=== PATIENT | female | born 1990 | race Caucasian/White ===

== ENCOUNTER 2019-03-26 08:59 | Emergency (ER) | payer OTHER ==
[~2019-03-26] VITALS: Ht 170.2 cm; Wt 108.9 kg
--- OUTSIDE RECORDS SUMMARY | ~2019-03-26 | XMS | Clinical Summary ---
Demographics + + + | Address | [address] | | | [place] [address] | + + + | Home Phone | | + + + | Preferred Language | Unknown | + + + | Marital Status | Unknown | + + + | Taoism Affiliation | Unknown | + + + | Race | Unknown | + + + | Ethnic Group | Unknown | + + + Author + + + | Author | [facility] (Historical as of | | | 01-15-19) | + + + | Organization | [facility] (Historical as of | | | 01-15-19) | + + + | Address | Unknown | + + + | Phone | Unavailable | + + + Support + + +---------+ + | Name | Relationship | Address | Phone | + + +---------+ + | No,Contact | ECON | Unknown | | + + +---------+ + Care Team Providers + +------+ + | Care Order Dispatcher Name | Role | Phone | + +------+ + | Norm Wall | PP | | + +------+ + Allergies Not on File Current Medications Not on file Active Problems Not on file Social History + +-------+ +--------+------+ | Tobacco Use | Types | Packs/Day | Years | Date | | | | | Used | | + +-------+ +--------+------+ | Never Assessed | | | | | + +-------+ +--------+------+ + + + | Sex Assigned at | Date Recorded | | | | + + + | Not on file | | + + + Plan of Treatment + + + + + | Health Maintenance | Due Date | Last Done | Comments | + + + + + | Vaccine: | | | | | Dtap/Tdap/Td (1 - | 8 | | | | Tdap) | | | | + + + + + | Cervical Cancer | | | | | Screening (Pap) | 9 | | | + + + + + | Vaccine: Influenza | | | | | (#1) | 9 | | | + + + + + Results Not on filefrom Last 3 Months Insurance + +--------+ +------+-------+ + | Payer | Benefi | Subscriber | Type | Phone | Address | | | t Plan | ID | | | | | | / | | | | | | | Group | | | | | + +--------+ +------+-------+ + | MEDICAID | [place] | [id number] | | | [address] | | | [place] | | | | [place] | | | [place] | | | | [phone] | | | 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
--- OUTSIDE RECORDS SUMMARY | ~2019-03-26 | XMS | Clinical Summary ---
Demographics + + + | Address | [address] | | | [place] [address] | + + + | Home Phone | | + + + | Preferred Language | Unknown | + + + | Marital Status | Unknown | + + + | Mormon Affiliation | Unknown | + + + | Race | Unknown | + + + | Ethnic Group | Unknown | + + + Author + + + | Author | [facility] [employer] [facility] (Historical as of | | | 01-15-19) | + + + | Organization | [facility] [employer] [facility] (Historical as of | | | 01-15-19) [...] Team Providers + +------+ + | Care Telephone Engineer Name | Role | Phone | + [...] +------+-------+ + | MEDICAID | [place] | [id number] | | | [address] | | | [place] | | | | [place] | | | [place] | | | | [phone] | | | 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
[~2019-03-26 08:59] MED LIST: ANAPROX DS550 MG PO; ATIVAN1 MG PO; BACLOFEN10 MG PO; BACTRIM DS TAB1 EACH PO; CEPHALEXIN500 MG PO; CIPROFLOXACIN500 MG PO; CITALOPRAM HBR20 MG PO; CYCLOBENZAPRINE10 MG PO; DAYPRO600 MG PO; DILTIAZEM HCL120 MG PO; DOXYCYCLINE HY100 MG PO; DYCLONINE HCL5 GM MISC; FISH OIL500 MG PO; FLEXERIL10 MG PO; HYDROCODON-ACE1 EA10 PO; MONO-LINYAH1 EACH PO; MOTRIN IB200 MG PO; MULTI-DAY VITA1 EACH PO; NAPROXEN500 MG PO; NEURONTIN400 MG PO; NORCO 10-325 T1 EACH PO; NORCO 5-325 TA1 EACH PO; OMEPRAZOLE20 MG PO; OXYCODON-ACETA1 EAC2 PO; PAROXETINE HCL20 MG PO; PENICILLIN V P500 MG PO; PROVENTIL HFA6.7 GM INH; ROBAXIN-750750 MG PO; SEROQUEL50 MG PO; ULTRAM50 MG PO; VICODIN 5-3001 EACH PO; ZITHROMAX250 MG PO
--- OUTSIDE RECORDS SUMMARY | 2019-03-26 09:02 | XMS ---
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 Roberto has no Care Guidelines for this patient. [place] VISIT COUNT (12 MO.) 1 TRACY Daniel TOTAL 1 NOTE: Visits indicate total known visits. ED/C VISIT TRACKING (12 MO.) 03/26/2019 09:00 [facility] TYPE: Emergency COMPLAINT: - SUICIDAL, LACS INPATIENT VISIT TRACKING (12 MO.) No inpatient visits to display in this time frame [email or web address]
[2019-03-26] MEDS ORDERED: DIVALPROEX SOD250 MG PO (09:03)
[2019-03-26] MEDS ORDERED: OMEPRAZOLE20 MG PO (09:03)
[2019-03-26] MEDS ORDERED: DULOXETINE HCL60 MG PO (09:03)
== END 2019-03-26 10:37 | disposition home or self-care (01) ==
LOC: ED 08:59
DX: S51.812A Laceration without foreign body of left forearm, initial encounter (principal); F60.3 Borderline personality disorder; F17.200 Nicotine dependence, unspecified, uncomplicated; Z88.0 Allergy status to penicillin; Z88.1 Allergy status to other antibiotic agents; W25.XXXA Contact with sharp glass, initial encounter
CPT/HCPCS: 99282

== ENCOUNTER 2020-01-27 14:46 | Emergency (ER) | payer OTHER ==
[~2020-01-27] VITALS: Ht 167.6 cm; Wt 109.8 kg
[~2020-01-27 14:46] MED LIST changes: +DIVALPROEX SOD250 MG PO; +DULOXETINE HCL60 MG PO
--- OUTSIDE RECORDS SUMMARY | 2020-01-27 14:50 | XMS ---
PreManage Notification: SHRADDHA MCGREGOR Security Plate Former Events No recent Security Events currently on file CRITERIA MET - [facility] - Has Care Guidelines - PDMP CARE PROVIDERS NANCY SAINI Nurse Practitioner: Family 03/28/2019-Current PHONE: [phone] Guidelines Source: [facility] Guidelines Date: 03/28/2019 Care Coordination: Receives mental health services with [facility].\T\nbsp; Please contact [facility] for any mental health concerns.\T\nbsp; [facility]: [phone]\ T\nbsp; [facility]: [phone]. Care History Medical/Surgical 03/28/2019 [facility] - Patient is currently established with [facility]. If patient is seen in the ED during business hours. Please contact [facility] at [facility]. Care Recommendation: This patient has had 5 or more Emergency Department visits in the last 12 months.\T\nbsp; Patient requires education on the scope and purpose of the ED as an acute care provider not a Primary Care Provider and should not be utilized for chronic conditions.\T\nbsp; These are guidelines and the provider should exercise clinical judgment when providing care. E.D. VISIT COUNT (12 MO.) 2 TRACY Daniel TOTAL 2 NOTE: Visits indicate total known visits. ED/UCC VISIT TRACKING (12 MO.) 01/27/2020 14:47 [facility] TYPE: Emergency COMPLAINT: - NECK PAIN 03/26/2019 09:00 [facility] TYPE: Emergency COMPLAINT: - SUICIDAL, LACS DIAGNOSES: - Allergy status to other antibiotic agents status - Allergy status to penicillin - Nicotine dependence, unspecified, uncomplicated - Borderline personality disorder - Laceration without foreign body of left forearm, initial enco - Contact with sharp glass, initial encounter INPATIENT VISIT TRACKING (12 MO.) No inpatient visits to display in this time frame [id number]
[2020-01-27] MEDS ORDERED: CYCLOBENZAPRINE10 MG PO (15:28)
== END 2020-01-27 15:41 | disposition home or self-care (01) ==
LOC: ED 14:46
DX: S10.93XA Contusion of unspecified part of neck, initial encounter (principal); E78.5 Hyperlipidemia, unspecified; J45.909 Unspecified asthma, uncomplicated; F41.9 Anxiety disorder, unspecified; Z87.891 Personal history of nicotine dependence; Z88.1 Allergy status to other antibiotic agents; Z79.899 Other long term (current) drug therapy; V49.9XXA Car occupant (driver) (passenger) injured in unspecified traffic accident, initial encounter
CPT/HCPCS: 99283; A9270

== ENCOUNTER 2023-11-14 18:37 | Emergency (ER) | payer OTHER ==
[~2023-11-14] VITALS: Ht 167.6 cm; Wt 74.2 kg
--- OUTSIDE RECORDS SUMMARY | ~2023-11-14 | XMS | Continuity of Care Document ---
Demographics + + + | Address | [address] | | | [place] [address] | + + + | Preferred Language | Unknown | + + + | Marital Status | Unknown | + + + | Baptism Affiliation | Unknown | + + + | Race | White | + + + | Ethnic Group | Not or | + + + Author + + + | Author | [facility] | + + + | Organization | [facility] | + + + | Address | [address] | | | [place] [address] | + + + | Phone | | + + + Care Team Providers + + + + | Care Inbound Sales Representative Name | Role | Phone | + + + + Unavailable | Unavailable | + + + + Allergies No information. Encounters No information. Functional Status No information. Immunizations No information. Medications No information. Problems + + + + | date | description | facility | + + + + | 2023-08-17 20:19:04 | Post-traumatic headache, | [facility] | | | unspecified, not | | | | intractable | | + + + + | 2023-08-17 20:56:55 | Other stimulant abuse, | [facility] | | | uncomplicated | | + + + + | 2023-08-17 20:56:55 | Post-traumatic headache, | [facility] | | | unspecified, not | | | | intractable | | + + + + Procedures No information. Results/Labs No information. Social History +--------+ + + | date | description | facility | +--------+ + + Vital Signs No information."
[~2023-11-14 18:37] MED LIST changes: +CLINDAMYCIN HC300 MG PO; +DESVENLAFAXINE50 M3 PO; +MACROBID 100 M100 MG PO; +METFORMIN HCL1000 MG PO; +ONDANSETRON ODT8 MG PO; +VENTOLIN HFA18 GM INH; +VITAMIN D21250 MCG PO
[2023-11-14 19:16] LABS: BASOPHILS 1.6 % (0-2); HEMATOCRIT 41.2 % (35.0-50.0); HEMOGLOBIN 13.6 g/dL (12.0-18.0); LYMPHOCYTES 34.5 % (24-44); MCH 28.7 (27-36); MCV 86.8 fl (81-99); NEUTROPHILS 56.9 % (39-80); PLATELET COUNT 193 K/uL (140-440); RBC 4.75 M/ul (4.3-5.7); RDW 15.3 (10.5-15.0)
[2023-11-14 19:35] LABS: ALBUMIN 3.9 g/dL (3.4-5.0); ALBUMIN/GLOBULIN RATIO 1.03 (1.1-2.4); ALKALINE PHOSPHATASE 68 U/L (46-116); ALT (SGPT) 22 U/L (14-59); ANION GAP 11.5 (7-21); AST (SGOT) 13 U/L (15-37); BILIRUBIN, TOTAL 0.7 ng/dL (0.2-1.0); BUN/CREATININE RATIO 12.76 (6.0-28.6); CALCIUM 8.9 mg/dL (8.5-10.1); CARBON DIOXIDE 28 mmol/L (21-32); CHLORIDE 102 mmol/L (98-107); CREATININE, SERUM 0.94 mg/dL (0.55-1.02); GLOMERULAR FILTRATION RATE,EST 81 mL/min (>60); MAGNESIUM 1.9 mg/dL (1.8-2.4); POTASSIUM 3.5 mmol/L (3.5-5.1); PROTEIN, TOTAL 7.7 g/dL (6.4-8.2); UREA NITROGEN 12 mg/dL (7-18)
[2023-11-14] MEDS ORDERED: CYCLOBENZAPRINE10 MG PO (20:49)
[2023-11-14 21:20] VITALS: BP 110/78
--- NOTE | 2023-11-14 22:29 | EKG ---
[facility] [address] [place] [address] Signed Sinus tachycardia Otherwise normal ECG When compared with ECG of 12-SEP-2023 15:16, No significant change was found Confirmed by Ruth Peace MD () on 11/14/2023 10:29:14 PM Electronically Signed By: RUTH PEACE MD 11/14/23 2229 PATIENT NAME: SHRADDHA MCGREGOR RONNY Electrocardiogram DATE OF : 86 PHYSICIAN: RUTH PEACE MD REPORT #: [id number] REPORT IS CONFIDENTIAL AND NOT TO BE RELEASED WITHOUT AUTHORIZATION
== END 2023-11-14 21:20 | disposition home or self-care (01) ==
LOC: ED 18:37
PROVIDERS: Family Medicine
DX: R07.89 Other chest pain (principal); E78.5 Hyperlipidemia, unspecified; Z87.891 Personal history of nicotine dependence; Z88.1 Allergy status to other antibiotic agents
CPT/HCPCS: 36415; 71045; 80053; 83735; 84484; 84703; 85025; 93005; 93010; 99285-25

== ENCOUNTER 2023-12-20 21:36 | Emergency (ER) | payer OTHER ==
[~2023-12-20] VITALS: Ht 167.6 cm; Wt 74.0 kg
[2023-12-20] MEDS ORDERED: KETOROLAC TROMETHAMINE 30 MG/ML VIAL IV ONE (21:45)
[2023-12-20] MEDS ORDERED: ondansetron HCL 4 MG/2 ML VIAL IV ONE (21:45)
[2023-12-20] MEDS ORDERED: LACTATED RINGER'S 1,000 ML IV ONE (21:45)
[2023-12-20 21:50] LABS: BASOPHILS 1.2 % (0-2); EOSINOPHILS 2.9 % (0-6); HEMATOCRIT 38.5 % (35.0-50.0); HEMOGLOBIN 13.3 g/dL (12.0-18.0); LYMPHOCYTES 41.7 % (24-44); MCH 29.2 (27-36); MCHC 34.4 g/dl (30-36); MONOCYTES 6.8 % (0-12); NEUTROPHILS 47.4 % (39-80); PLATELET COUNT 182 K/uL (140-440); RBC 4.53 M/ul (4.3-5.7); RDW 14.7 (10.5-15.0)
[2023-12-20 22:12] LABS: ACETAMINOPHEN 0 ug/mL (10-30); ALBUMIN 3.7 g/dL (3.4-5.0); ALBUMIN/GLOBULIN RATIO 1.06 (1.1-2.4); ALCOHOL, MEDICAL <3 ng/dL (<3); ALKALINE PHOSPHATASE 68 U/L (46-116); ALT (SGPT) 13 U/L (14-59); ANION GAP 14.3 (7-21); AST (SGOT) 7 U/L (15-37); BILIRUBIN, TOTAL 0.3 ng/dL (0.2-1.0); BUN/CREATININE RATIO 17.52 (6.0-28.6); CALCIUM 8.8 mg/dL (8.5-10.1); CARBON DIOXIDE 24 mmol/L (21-32); CHLORIDE 103 mmol/L (98-107); CREATININE, SERUM 0.97 mg/dL (0.55-1.02); GLOMERULAR FILTRATION RATE,EST 78 mL/min (>60); POTASSIUM 3.3 mmol/L (3.5-5.1); PROTEIN, TOTAL 7.2 g/dL (6.4-8.2); SALICYLATE 3.7 mg/dL (2.8-20.0); TSH, 3RD GENERATION 2.783 uIU/mL (0.358-3.740); UREA NITROGEN 17 mg/dL (7-18)
[2023-12-20 23:18] LABS: BILIRUBIN, URINE NEGATIVE (negative); BLOOD/HGB, URINE NEGATIVE (Negative); KETONE, URINE NEGATIVE (Negative); LEUK ESTERASE, URINE NEGATIVE (negative); NITRITE, URINE NEGATIVE (negative)
[2023-12-20 23:38] LABS: AMPHETAMINES, URINE POSITIVE (NEGATIVE); BARBITURATES, URINE NEGATIVE (NEGATIVE); BENZODIAZEPINE, URINE NEGATIVE (NEGATIVE); BUPRENORPHINE, URINE NEGATIVE (NEGATIVE); CANNABINOID, URINE POSITIVE (NEGATIVE); COCAINE, URINE NEGATIVE (NEGATIVE); ECSTASY, URINE POSITIVE (NEGATIVE); FENTANYL, URINE NEGATIVE (NEGATIVE); METHADONE, URINE NEGATIVE (NEGATIVE); OPIATES, URINE NEGATIVE (NEGATIVE); OXYCODONE, URINE NEGATIVE (NEGATIVE); PHENCYCLIDINE, URINE NEGATIVE (NEGATIVE)
[2023-12-21 00:18] VITALS: BP 98/66
--- NOTE | 2023-12-21 11:26 | EKG ---
[facility] [address] [place], [place] [address] Signed Normal sinus rhythm Normal ECG When compared with ECG of 13-DEC-2023 22:51, No significant change was found Confirmed by RUBIO CHAVEZ MD ([id number]) on 12/21/2023 11:26:27 AM Electronically Signed By: RUBIO CHAVEZ 12/21/23 1126 PATIENT NAME: SHRADDHA MCGREGOR RONNY Electrocardiogram DATE OF : [birth year] PHYSICIAN: RUBIO CHAVEZ REPORT #: [id number] REPORT IS CONFIDENTIAL AND NOT TO BE RELEASED WITHOUT AUTHORIZATION
== END 2023-12-21 00:25 | disposition home or self-care (01) ==
LOC: ED 21:36
PROVIDERS: Family Medicine
DX: E86.0 Dehydration (principal); J45.909 Unspecified asthma, uncomplicated; Z87.891 Personal history of nicotine dependence; Z88.1 Allergy status to other antibiotic agents; Z88.0 Allergy status to penicillin
CPT/HCPCS: 36415; 71045; 74177; 80053; 80307; 81003; 84443; 84484; 84703; 85025; 93005; 93010; 96361; 96375; 99285-25; G0480; J1885; J2405; J7121; Q9967